=== PATIENT | female | born 1940 | race Caucasian/White ===

== ENCOUNTER → 2019-12-30 | Outpatient (REF) | payer MEDICARE ==
[~2019-12-30] MED LIST: ACET65TA OR; ADVA1AER2 IN; ALENDRONATE OR; CENTRUM SIVER OR; COUM1TAB18 OR; CRES10TA32 OR; HYDR25TA6 OR; LISI10TA4 OR; METO-1 OR; OSCAL + D OR; PERC5TAB8 OR; SYNT75TA OR; VITACAP31 OR
== END ==
LOC: M LAB REF 12:53
PROVIDERS: ATTEND Physician Assistant
DX: D04.62 Carcinoma in situ of skin of left upper limb, including shoulder (principal)
CPT/HCPCS: 11102; 17000; 17003; 88305; G0463